=== PATIENT | male | born 1995 | race Caucasian/White ===

== ENCOUNTER 2017-11-14 08:21 | Day surgery (SDC) | payer OTHER, SELFPAY ==
[2017-11-13 11:44] VITALS: BMI 20.7
--- NOTE | 2017-11-14 | DI.RAD.S_ITS ---
PROCEDURE: XR CLAVICLE RT INDICATIONS: RIGHT CLAVICAL OPEN REDUCTION TECHNIQUE: 4 views of the clavicle were acquired. COMPARISON: [facility], CR, XR CHEST 1V, 11/14/2017, 13:29. FINDINGS: Bones: A sequence of immediate preoperative and postoperative assessment of the right midshaft clavicular fracture establishing normal alignment after ORIF.. Soft tissues: No suspicious soft tissue calcifications. IMPRESSION: Anatomic alignment established after ORIF of the midshaft right clavicular fracture. Dictated by: Jesse Brown M.D. on 11/19/2017 at 8:46 Approved by: Jesse Brown M.D. on 11/19/2017 at 8:47
--- NOTE | 2017-11-14 | DI.RAD.S_ITS ---
PROCEDURE: XR CHEST 1V INDICATIONS: s/p clavicle fracture eval for pneumothorax TECHNIQUE: One view of the chest was acquired. COMPARISON: None. FINDINGS: Surgical changes and devices: None. Lungs and pleura: No pleural effusions or pneumothorax. Lungs are clear. Mediastinum: Mediastinal contours appear normal. Heart size is normal. Bones and chest wall: There is an internally fixed right clavicular shaft fracture. No suspicious bony lesions. Overlying soft tissues appear unremarkable. IMPRESSION: 1. No acute cardiopulmonary disease. No pneumothorax. 2. Open reduction and internal fixation of right clavicle shaft fracture. Dictated by: Louie Anthony M.D. on 11/14/2017 at 13:51 Approved by: Louie Anthony M.D. on 11/14/2017 at 13:53
[2017-11-14] MEDS: LACTATED RINGERS 1,000 ML 42 ML IV (07:20)
[2017-11-14 08:51] VITALS: BP 113/75; PULSE 61; RESP 15; TEMP 36.4; O2SAT 98; BMI 20.7
--- NOTE | 2017-11-14 10:42 | PM.PREOP ---
Pre-operative Note Interval Note Pre-op Check: Yes History & Physical exam performed today by Physician Changes: Yes
[2017-11-14] MEDS: CEFAZOLIN 2 GM/100 ML FROZ.PIGGY IV (11:10)
--- NOTE | 2017-11-14 12:16 | SUR.OPER ---
Beach chair with Maquet shoulder positioner. Lower body on padded OR bed. Head in foam padded head cradle, secured with straps. Non-operative arm secured <90 degrees abduction. Pillow under knees. Safety belt at thigh. Cloth tape over blanket over lower legs.
[2017-11-14] MEDS: BUPIVACAINE 0.25% MDV 50 ML INJ (12:25)
[2017-11-14 13:25] VITALS: BP 114/62; PULSE 90; RESP 17; TEMP 36.3; O2SAT 100
[2017-11-14 13:35] VITALS: BP 123/76; PULSE 69; RESP 16; O2SAT 99
[2017-11-14] MEDS: ONDANSETRON 4 MG/2 ML INJ IV (13:39)
--- NOTE | 2017-11-14 13:49 | P.OP_ITS ---
Operative Date/Time/Diagnoses Date of procedure: 11/14/17 Time of procedure: 11:30 Pre-op diagnosis: Right midshaft clavicle fracture Post-op diagnosis: same Procedure & Clinicians Procedure: Right clavicle open reduction internal fixation Same procedure as scheduled: Yes Indications: This is a 22-year-old right-hand male who sustained a right midshaft displaced comminuted clavicle fracture when he was wrestling with a friend on November 07, 2017. The risks, benefits, indications, and expectations of treatment options were discussed with the patient. The risks of surgery to include but not limited to infection, bleeding, damage to neurovascular structures, need for additional surgery, persistent or worsening pain, nonunion , malunion, iatrogenic fracture, deep vein thrombosis, pulmonary embolism, loss of limb and loss of life were discussed with the patient. All questions were answered, the patient elected to proceed to surgery and informed consent was obtained. Surgeon: Valeri Duvall Front Desk Officer: Vitaly Blanco Anesthesia Type: General (LMA) and Local (10 mL of 0.25 upivacaine without epinephrine) Operative Notes Findings: Midshaft comminuted displaced right clavicle fracture. Closure Type: primary Specimen(s): none sent Implants & Drains: 1. Arthrex 8 hole anatomic right clavicle 3.5 mm plate. 2. Arthrex 3.5 mm cortical screw x6. 3. 2.0 mm cortical screw x1. 4. 2.7 mm cortical screw x1. Estimated Blood Loss (mL): 10 Blood products transfused: none Tourniquet time (min): 0 Procedure in detail: The patient was met in the preoperative hold area on the day of surgery were reconfirmed that we had the correct patient, we will plan to do the correct procedure and had the correct extremity, which was the right upper extremity identified. Prior to the patient receiving any medications the operative extremity was initialed by the surgeon. The patient was then brought back to the operating room in stable condition placed supine on the operating room table. All bony prominences well padded and sequential compression devices were placed on the bilateral lower extremities. General anesthesia was then induced in a LMA was placed. The patient was then positioned into a beach chair position ensuring that all bony prominences remained well padded and that he remained anatomic position. The right upper extremity was then prepped and draped in the usual sterile fashion. After final draping additional ChloraPrep was utilized on the operative site. We had a surgical time out reconfirmed with the correct patient, we were planning to do the correct procedure and had the correct extremity which was the right upper extremity identified. We also confirmed the patient received preoperative antibiotics, that all necessary gear was in the room confirmed a sterile the numbers of the operative team had any concerns. I began by making an incision directly over the clavicle. After sharply incising the skin and then dissected through subcuticular layer utilizing electrocautery. The platysma was incised utilizing electrocautery. I then established a plane over the fascia. The fascia was then incised with electrocautery in line with the clavicle. The periosteum was elevated from the superior portion of the clavicle about the fracture. There was a butterfly fragment anteriorly, which was reduced to the distal fragment. The proximal fragment was then reduced to the distal fragment. This was held utilizing a lobster claw retractors. Orthogonal fluoroscopy of the clavicle was then obtained showing adequate reduction. The butterfly fragment was then lagged from anterior to posterior to the distal fragment utilizing a 2.0 mm cortical screw after drilling the near cortex with a 2.0 mm drill in the distal cortex with a 1.5 mm drill. A 8 hole right clavicle anatomic Arthrex plate was then selected and placed on the superior portion of the clavicle. Lobster claw was utilized to hold this in place and help maintain the reduction. The 3rd most proximal hole was then drilled bicortically with a 2.5 mm drill and a 3.5 mm cortical screw was placed. Utilizing the same technique the 2nd most distal screw hole was filled with a 3.5 mm cortical screw, followed by the most proximal screw hole and then the 3rd most proximal screw hole. This was again repeated with the most distal and 2nd most distal screw holes on the plate such that in total there was 6 of the 3.5 mm cortical screws holding the plate in place. A 2nd lag screw was then placed into the butterfly fragment, this time from the proximal fragment into the butterfly fragment from a superior to inferior direction through the 4th most proximal screw hole by 1st drilling bicortically with a 2.0 mm drill and then drilling the proximal cortex with a 2.7 mm drill and then placing a 2.7 mm screw. Orthogonal fluoroscopy of the clavicle was obtained which showed anatomic reduction and appropriate placement of the implants. The wound was then thoroughly irrigated and the fascia was closed utilizing 0 Vicryl in a [id number] fashion. The platysma was closed utilizing 2-0 Vicryl in a running fashion. The subcuticular layer was closed utilizing 2-0 Vicryl in a buried fashion. The skin was closed utilizing 3-0 Monocryl in a running buried fashion. Mastisol Steri-Strips were then placed over the incision. The incision was then injected with 10 mL of 0.25% bupivacaine without epinephrine for local analgesia. The wound was then dressed with sterile Xeroform, plain gauze and Tegaderm. All sponge counts needle counts were correct at the conclusion of the case. The patient was then placed into a sling. The patient was woken from general anesthesia without complication and taken to the PACU in stable condition. Complications: none Condition: stable Disposition: PACU Plan for aftercare: The patient will discharge home same day of surgery. He may remove the dressing and shower in 5 days, but should not soak the wound for 4 weeks. He should remain in the sling until his follow-up in 10-14 days at which time we will do a wound check and begin physical therapy for passive and active assist range of motion. He will not begin any strengthening until 6 weeks postoperatively. Goal of return to normal activities at 12 weeks postoperative.
--- NOTE | 2017-11-14 13:50 | SUR.PHASEI ---
Just 5 minutes after admission into PACU, pt. did c/o pain at a 8 on scale 0 -10. Anesthesia at bedside went ahead and medicated the pt. with anesth. meds.
--- NOTE | 2017-11-14 13:52 | SUR.PHASEI ---
1330, x-ray at pt. bedside for CXR per surgeon orders
[2017-11-14 13:56] VITALS: BP 118/71; PULSE 72; RESP 16; O2SAT 98
[2017-11-14] MEDS: HYDROCODONE/ACET 5/325 TABLET 1 TAB PO (14:05)
[2017-11-14 14:20] VITALS: BP 95/57; PULSE 66; RESP 14; O2SAT 99
[2017-11-14 14:39] VITALS: BP 111/58; PULSE 63; RESP 18; TEMP 36.8; O2SAT 100
== END 2017-11-14 14:48 | disposition home or self-care (01) ==
PROVIDERS: PCP General Practice; Visit Provider Orthopaedic Surgery
PROC: 0PS904Z Reposition Right Clavicle with Internal Fixation Device, Open Approach (ICD-10-PCS; CPT 23515; principal; 2017-11-14 10:15)
DX: S42.001A Fracture of unspecified part of right clavicle, initial encounter for closed fracture (principal); Y93.72 Activity, wrestling; F17.210 Nicotine dependence, cigarettes, uncomplicated
CPT/HCPCS: 23515; 71045; 73000; 76001; J0690; J1100; J1170; J2405; J2704; J3010

== ENCOUNTER → 2020-02-23 13:22 | Outpatient (CLI) | payer OTHER, SELFPAY ==
[2020-02-23 14:27] LABS: COVID19 -Nasal RAPID POSITIVE (Negative)
== END ==
PROVIDERS: PCP General Practice; Visit Provider Physician Assistant
DX: U07.1 COVID-19 (principal)
CPT/HCPCS: 87635